=== PATIENT | female | born 1955 | race Caucasian/White ===

== ENCOUNTER 2020-03-26 23:54 | Emergency (ER) | payer OTHER ==
[~2020-03-26] VITALS: Ht 170.2 cm; Wt 88.0 kg
[2020-03-27] MEDS ORDERED: LANTUS SOL100 UNIT/1 (00:23)
[2020-03-27] MEDS ORDERED: SYNTHROID150 MCG (00:23)
== END 2020-03-27 13:22 | disposition home or self-care (01) ==
LOC: ER 23:54
DX: K57.90 Diverticulosis of intestine, part unspecified, without perforation or abscess without bleeding (principal); M54.5 Low back pain